=== PATIENT | female | born 1990 | race Caucasian/White ===

== ENCOUNTER → 2021-01-16 | Outpatient (CLI) | payer BC, OTHER | LOC: LAB 07:58 | DX: N92.5 Other specified irregular menstruation (principal) | CPT/HCPCS: 36415; 84144; 84702 ==

== ENCOUNTER → 2021-03-03 | Outpatient (CLI) | payer BC, OTHER ==
[2021-03-03 11:13] LABS: RED BLOOD COUNT 4.81 M/UL (4.00-5.10); WHITE BLOOD COUNT 4.7 K/UL (4.5-11.0)
[2021-03-03 11:36] LABS: BUN/CREATININE RATIO 16 (0-10)
[2021-03-04 07:11] LABS: VITAMIN D, 25-HYDROXY 24.1 ng/mL (30.0-100.0)
[2021-03-04 08:15] LABS: ESTRADIOL 39.6 pg/mL (.); FSH, SERUM 5.3 mIU/mL (.); HBSAG SCREEN Negative (Negative); HEP A AB, IGM Negative (Negative); HEP B CORE AB, IGM Negative (Negative); HEP C VIRUS AB <0.1 (0.0-0.9); HIV SCREEN 4TH GENERATION WRFX Non Reactive (Non Reactive); PROGESTERONE 0.5 ng/mL (.); PROLACTIN 11.3 ng/mL (4.8-23.3)
[2021-03-04 11:15] LABS: INSULIN 13.7 uIU/mL (2.6-24.9)
[2021-03-09 12:09] LABS: TESTOSTERONE, SERUM 32 ng/dL (13-71)
== END ==
LOC: LAB 09:51
PROVIDERS: Nurse Practitioner Family
DX: R06.02 Shortness of breath (principal); G43.909 Migraine, unspecified, not intractable, without status migrainosus; N91.2 Amenorrhea, unspecified; R14.0 Abdominal distension (gaseous); R35.0 Frequency of micturition
CPT/HCPCS: 36415; 71046; 80053; 80061; 80074; 82607; 82627; 82670; 82728; 83001; 83002; 83036; 83540; 83550; 84144; 84146; 84402; 84403; 84439; 84443; 84702; 85025; 87389

== ENCOUNTER → 2021-03-12 | Outpatient (CLI) | payer BC, OTHER | LOC: EXRD 09:07 | DX: R14.0 Abdominal distension (gaseous) (principal) | CPT/HCPCS: 76700; 76856 ==

== ENCOUNTER → 2021-05-20 | Outpatient (CLI) | payer OTHER | LOC: LAB 11:42 | DX: N92.5 Other specified irregular menstruation (principal) | CPT/HCPCS: 36415; 84702 ==

== ENCOUNTER 2021-09-11 13:04 | Emergency (ER) | payer OTHER ==
[2021-09-11 15:32] LABS: HEMOGLOBIN 15.1 gm/dl (12.3-15.3); RED BLOOD COUNT 5.09 M/UL (4.00-5.10); WHITE BLOOD COUNT 11.2 K/UL (4.5-11.0)
[2021-09-11 15:53] LABS: BUN/CREATININE RATIO 16 (0-10)
[2021-09-11] MEDS ORDERED: IBUPROFEN800 MG PO (19:30)
== END 2021-09-11 19:35 | disposition home or self-care (01) ==
LOC: ER1 13:04
PROVIDERS: Preventive Medicine Occupational Medicine
DX: R07.89 Other chest pain (principal); Z20.822 Contact with and (suspected) exposure to COVID-19
CPT/HCPCS: 71045; 80053; 81001; 82550; 82553; 83690; 83874; 83880; 84484; 84703; 85025; 85379; 85652; 86140; 87086; 93005; 94664; 99285; J7030; Q9967; U0002

== ENCOUNTER → 2022-01-15 | Outpatient (CLI) | payer OTHER ==
[~2022-01-15] MED LIST: IBUPROFEN800 MG PO
== END ==
LOC: NM 12:17
DX: R10.11 Right upper quadrant pain (principal)
CPT/HCPCS: 78227; A9537; J2805